=== PATIENT | male | born 1965 | race Two or more races ===

== ENCOUNTER → 2024-12-02 | Day surgery (SDC) | payer MEDICAID ==
[~2024-12-02] VITALS: Ht 175.3 cm; Wt 102.1 kg
[~2024-12-02] MED LIST: APIX5TAB PO; BUPIVACAINE W/ EPINEPH 0.5% INJ 50ML MDV IJ ONE; CEFEPIME 1GM/ 50ML 50 ML IV ONE; HYDR-4798 PO; HYDROmorphone HCL 2 MG/ML VL/or syr ONE; KETOROLAC TROMETH 30 MG/ML 1ML VIAL ONE; MORPHINE SULF PF 5 MG/10 ML VIAL ONE; PHENYLEPHRINE HCL 10 MG/ML VL ONE; PROPOFOL 10 MG/ML 20 ML IV ONE; ROPIVACAINE 0.5% (5MG/ML) 20ML AMPULE IJ ONE; ROSU10TA16 PO; SERT50TA PO; TRANEXAMIC ACID 20 ML ONE; VANCOMYCIN HCL 1000 MG VL ONE; ceFAZolin 2 GM/D5W50ml 50 ML IV ONE; fentaNYL CITRATE 100 MCG/2 ML VL ONE
[2024-12-02 06:30] VITALS: BP 118/64; PULSE 62; RESP 16; TEMP 97; O2SAT 94
== END | disposition home or self-care (01) ==
LOC: SUR 06:10
PROVIDERS: ATTEND Orthopaedic Surgery
DX: M17.12 Unilateral primary osteoarthritis, left knee (principal); Z53.8 Procedure and treatment not carried out for other reasons; E78.5 Hyperlipidemia, unspecified; Z98.890 Other specified postprocedural states
CPT/HCPCS: 86850; 86900; 86901; J0690; J0692; J1171; J1885; J2270; J2371; J2704; J3010; J3370